=== PATIENT | male | born 1965 | race Caucasian/White ===

== ENCOUNTER → 2021-08-15 08:45 | Outpatient (CLI) | payer OTHER, SELFPAY ==
[2021-08-15 09:12] LABS: COVID19 -Nasal RAPID Negative (Negative)
== END ==
PROVIDERS: PCP Student in an Organized Health Care Education/Training Program; Visit Provider Family Medicine Sleep Medicine
DX: Z20.822 Contact with and (suspected) exposure to COVID-19 (principal)
CPT/HCPCS: 87635

== ENCOUNTER 2021-08-15 11:26 | Day surgery (SDC) | payer OTHER, SELFPAY ==
--- NOTE | 2021-08-15 | PATH_ITS ---
[facility] Accession Number: [id number] . 01 Material submitted: . colon - TRANSVERSE COLON POLYP . 02 Diagnosis: Transverse Colon Polyp, Biopsy: Inflammatory polyp. MRV 08/18/2021 1155 Local . 02 Electronically signed: . Endy Barnett MD, PhD, Pathologist NPI- [id number] . 01 Gross description: . TRANSVERSE COLON POLYP: Received in formalin is 1 fragment(s) of gibbons, soft tissue measuring 0.4 x 0.3 x 0.3 cm submitted entirely in 1 cassette(s) /CPE 08/17/2021 1020 Local . 02 Pathologist provided ICD-10: K51.40 . 02 CPT . 067858 Specimen Comment: A courtesy copy of this report has been sent to [phone] Performed at: 01 [facility] [address] [id number] MD Shaan Garza MD Phone: [phone] Performed at: 02 [facility] [address] [place], [place] [id number] MD Marbella Sands MD Phone: [phone]
[2021-08-15 11:46] VITALS: BMI 35.2
[2021-08-15 11:51] VITALS: BP 138/82; PULSE 63; RESP 16; TEMP 36.8; O2SAT 98
[2021-08-15] MEDS: SODIUM CHLORIDE 0.9% 1,000 ML 84 ML IV (11:53)
--- NOTE | 2021-08-15 12:51 | PM.HP.1 ---
History of Present Illness History of Present Illness Date Patient Seen: 08/15/21 Time Patient Seen: 12:51 Chief complaint: SDC Narrative: Indicated for colon cancer screening. Tam seems to recall unknown histology polyps as of the last exam. I have not seen this procedure note nor pathology as of this writing. Patient History Medical History Heartburn Hypercholesteremia Family & Social History Social History: household members spouse Tobacco & Substance use: Smoking Status Former smoker alcohol intake never Substance Use Type does not use Meds Home Medications and Allergies Home Medications Medication Instructions Recorded Confirmed Type celecoxib 200 mg capsule 200 mg PO DAILY 08/15/21 08/15/21 History fluticasone propionate 50 50 mcg INTRANASAL DAILY 08/15/21 08/15/21 History mcg/actuation nasal spray,suspension hydrochlorothiazide 25 mg tablet 25 mg PO DAILY 08/15/21 08/15/21 History loratadine 10 mg tablet 10 mg PO DAILY 08/15/21 08/15/21 History montelukast 10 mg tablet 10 mg PO DAILY 08/15/21 08/15/21 History Allergies Allergy/AdvReac Type Severity Reaction Status Date / Time ceftriaxone [From Rocephin] Allergy Severe Anaphylaxis Verified 08/15/21 11:41 Review of Systems Review of Systems ROS: Yes All systems reviewed with the patient and are negative except as otherwise documented Exam Vital Signs (past 8 hours): - 08/15/21 11:51 Temperature 98.2 F Pulse Rate 63 Respiratory Rate 16 Blood Pressure 138/82 Pulse Oximetry 98 Oxygen Delivery Method Room Air Const General: cooperative and comfortable Orientation: alert HENOR Head: normocephalic Ears: external ears normal Nose: external nose normal Face and sinus: normal facial exam Mouth: oral mucosae normal Eyes General: appearance normal, both eyes and all related structures Neck Neck: normal visual inspection Chest Chest: normal inspection of the chest Resp Effort & Inspection: normal respiratory effort Cardio Rate: regular rate GI Inspection: normal to inspection Skin General: no rashes or lesions noted and No jaundice Neuro General: patient alert and moves all extremities Cognition: normal cognition Speech: speech normal Extrem General: no pedal edema Psych Appearance: grossly normal Assessment & Plan Assessment & Plan narrative: 56-year-old male who reports an unknown histology colon polyp from 5 years ago or so. Colonoscopy is planned for today. Time Spent With Patient Critical Care time: I spent a total of [] minutes of critical care time on this patient's care today; this time is exclusive of procedural time.
--- NOTE | 2021-08-15 12:53 | PM.PREOP ---
Pre-operative Note COVID-19 COVID-19 status: Negative Result date/Date tested (Pos, Neg/Pending): 08/15/21 Criteria for continued procedure: Possibility delay results in more complex future surgery or treatment Interval Note History & Physical reviewed/Exam performed by Physician: Yes Changes to H&P: No ASA Class (for procedural sedation): II
--- NOTE | 2021-08-15 13:37 | P.OP.COLON_ITS ---
Operative Date/Time/Diagnoses Date of procedure: 08/15/21 Time of procedure: 13:37 Pre-op diagnosis: Personal history of colon polyps Post-op diagnosis: same Procedure & Clinicians Study performed: Colonoscopy with cold snare polypectomy Same procedure as scheduled: Yes Indications: Personal history of colon polyps Surgeon: Dani Queen Procedure Notes SCOAP/Timeout: Done Procedure in detail: After the risks and benefits were explained, written and verbal informed consent was obtained. The patient was brought into the procedure room and placed into the left lateral decubitus position. Please see nurse mobile battery technician notes for sedation details. Digital rectal examination was accomplished. The scope was introduced into the patient and advanced under direct visualization to the cecum as identified by the appendiceal orifice and ileocecal valve. The scope was slowly withdrawn to carefully examine the mucosa for any defects or lesions. Comprehensive imaging was accomplished throughout the rectum including the dentate line. The colon was decompressed, the scope was then removed from the patient who tolerated the procedure well. Bowel prep adequate Adult colonoscope Scope withdrawal time: 10 minutes Sedation minutes: 19 Complications: none Impression: There was some mild diverticulosis in the left colon. Patient had grade 2 internal nonbleeding nonthrombosed hemorrhoids. There was a small 5 mm polyp in the distal transverse removed with cold snare. No additional mucosal pathology was appreciated throughout. Endoscopic diagnosis 1. Colon polyp 2. Diverticulosis 3. Grade 2 hemorrhoids Post-procedure Plan for aftercare: 1. Await histopathology 2. Repeat colonoscopy 7 years. Disposition: PACU
[2021-08-15 13:39] VITALS: BP 124/84; PULSE 60; RESP 20; TEMP 36.3; O2SAT 97
[2021-08-15 13:45] VITALS: BP 105/68; PULSE 65; RESP 11; O2SAT 96
--- NOTE | 2021-08-15 13:51 | SUR.PHASEI ---
Sitting up, alert, anxious to go home. Drinking juice, Hand-off to [facility].
[2021-08-15 13:59] VITALS: BP 110/72; PULSE 68; RESP 13; TEMP 36.4; O2SAT 98
[2021-08-15 14:05] VITALS: BP 117/74; PULSE 58; RESP 16; O2SAT 97
== END 2021-08-15 14:17 | disposition home or self-care (01) ==
PROVIDERS: PCP Student in an Organized Health Care Education/Training Program; Referring Provider Internal Medicine Gastroenterology; Visit Provider Internal Medicine Gastroenterology
PROC: 0DJD8ZZ Inspection of Lower Intestinal Tract, Via Natural or Artificial Opening Endoscopic (ICD-10-PCS; CPT 45378; principal; 2021-08-15 12:30)
DX: Z12.11 Encounter for screening for malignant neoplasm of colon (principal); Z86.010 Personal history of colon polyps; Z20.822 Contact with and (suspected) exposure to COVID-19; K57.30 Diverticulosis of large intestine without perforation or abscess without bleeding; K64.1 Second degree hemorrhoids; K51.40 Inflammatory polyps of colon without complications
CPT/HCPCS: 45385; 87635; C9803; J2704

== ENCOUNTER 2022-03-01 21:13 | Emergency (ER) | payer OTHER, SELFPAY ==
[2022-03-01 21:20] VITALS: BP 146/84; PULSE 76; RESP 18; TEMP 36.1; O2SAT 98; BMI 33.3
--- NOTE | 2022-03-02 01:56 | ED_ITS ---
HPI - Head Injury General Chief complaint: Head Injury Stated complaint: head injury Time Seen by Provider: 03/02/22 01:30 Source: patient Mode of arrival: Ambulatory History of Present Illness HPI Narrative: 57-year-old male nonsmoker with history of hypertension presents with his with a chief complaint of a head injury earlier today. He was at a trampoline park up in [place] and jumped up in fell back striking his head on the ground. He reports to have had a loss of consciousness about 1 minute and had some brief confusion in the immediate aftermath but no vomiting, no seizure and has been in is neurologic baseline for many hours since. He does not take any blood thinners and denies use of alcohol or street drugs. He denies any numbness, tingling or weakness of his extremities. He has no other injuries such as neck or back pain. Does endorse a mild headache and feels a bit sleepy but is otherwise alert and oriented and acting at baseline. Related Data Home Medications Medication Instructions Recorded Confirmed celecoxib 200 mg capsule 200 mg PO DAILY 08/15/21 08/15/21 fluticasone propionate 50 50 mcg intranasal DAILY 08/15/21 08/15/21 mcg/actuation nasal spray,suspension hydrochlorothiazide 25 mg tablet 25 mg PO DAILY 08/15/21 08/15/21 loratadine 10 mg tablet 10 mg PO DAILY 08/15/21 08/15/21 montelukast 10 mg tablet 10 mg PO DAILY 08/15/21 08/15/21 Allergies Allergy/AdvReac Type Severity Reaction Status Date / Time ceftriaxone [From Rocephin] Allergy Severe Anaphylaxis Verified 08/15/21 11:41 Review of Systems Review of Systems Narrative: GENERAL: Denies chills, fatigue, malaise, fever, sweats. HEENT: Denies sinus pain, ear pain, sore throat, difficulty swallowing, dizziness. RESPIRATORY: Denies dyspnea, cough, wheezing, hemoptysis, sputum. CARDIOVASCULAR: Denies chest pain, palpitations, orthopnea, edema, GASTROINTESTINAL: Denies nausea, vomiting, abdominal pain, diarrhea, constipation, melena. : Denies dysuria, frequency, incontinence, hematuria, urinary retention. MUSCULOSKELETAL: denies weakness, joint pain, or bony pain SKIN: Denies rash, skin lesions, or other NEUROLOGIC: See HPI PSYCHIATRIC: No concerning psychosocial issues. 12 point review of systems is negative except for those stated above Patient History Medical History Heartburn Hypercholesteremia Social History household members: spouse Smoking Status: Former smoker alcohol intake: never Smoking Status: Former smoker Substance Use Type: does not use Exam Narrative Exam Narrative: GENERAL: [57] year old patient appears stated age. Well-developed patient, in mild distress. GCS 15 HEAD: Atraumatic. Normocephalic. EYES: Pupils equal round and reactive. Extraocular motions intact. No scleral icterus. No injection or drainage. ENT: Nose without bleeding, purulent drainage. Throat without erythema, tonsillar hypertrophy or exudate. Airway patent. NECK: Trachea midline. Non tender CARDIOVASCULAR: Regular rate and rhythm without murmurs, gallops, or rubs. RESPIRATORY: Clear to auscultation. Breath sounds equal bilaterally. No wheezes, rales, or rhonchi. GASTROINTESTINAL: Abdomen soft, non-tender, nondistended. EXTREMITIES: No edema or joint tenderness. BACK: Nontender without deformity or crepitance. No flank tenderness. NEURO: AOx3. SKIN: No rash or erythema of visible areas NIH Stroke Scale 1a. LOC: Patient is alert and keenly responsive (0) 1b. LOC Questions: Patient answers both LOC questions accurately (0) 1c. LOC Commands: Patient performs both tasks correctly (0) 2. Best Gaze: Normal (0) 3. Visual: No visual loss (0) 4. Facial palsy: Normal symmetrical movements (0) 5. Motor arm: No drift (0) 6. Motor leg: No drift (0) 7. Limb ataxia: Absent (0) 8. Sensory: Normal (0) 9. Best language: No aphasia; normal (0) 10. Dysarthria: Normal (0) 11. Extinction and inattention: No abnormality (0) NIHSS: 0 Initial Vital Signs Initial Vital Signs: Vital Signs Temperature 97 F L 03/01/22 21:20 Pulse Rate 76 03/01/22 21:20 Respiratory Rate 18 03/01/22 21:20 Blood Pressure 146/84 H 03/01/22 21:20 Pulse Oximetry 98 03/01/22 21:20 Oxygen Delivery Method 03/01/22 21:[address] Head Rule Age <16 years old: No Patient on blood thinners: No Seizure after injury: No Exclusion: Patient NOT Excluded, Proceed to next steps GCS < 15 at 2 hr post trauma: No Suspected open or depressed skull fracture: No Any sign of basilar skull fracture (hemotympanum, raccoon eyes, Arias's sign, CSF nicole-/rhinorrhea): No Two or more episodes of vomiting: No Age greater or equal to 65 years: No Retrograde amnesia to the event greater or equal to 30 min: No Dangerous Mechanism (pedestrian vs. mv, occupant ejected from mv, fall from >3 ft or > 5 stairs): No Recommendation: CT unnecessary Course Vital Signs Vital signs: Vital Signs - 8 hr 03/01/22 21:20 03/02/22 02:17 Temperature 97 F L 97.1 F L Pulse Rate 76 61 Respiratory Rate 18 16 Blood Pressure 146/84 H 149/80 H Pulse Oximetry 98 95 Oxygen Delivery Method Room Air Room Air Discharge Plan Departure Patient Disposition: Home Clinical Impression: Concussion with loss of consciousness Instructions: Concussion Activity Restrictions/Additional Instructions: *You have been diagnosed with [concussion with brief loss of consciousness] *What to do: *Please continue to take your regular medications as directed. * You have a slight concussion and will likely have a mild headache and some nausea for a few days. Avoiding highly stimulating activities and even TV or computers may be helpful in minimizing your symptoms. Avoid activities that will put you at risk for another head injury for at least a week. You can take tylenol or motrin for headache Return for worsening or persistent symptoms *Return to Emergency Department if you should have any new, worsening or concerning symptoms Prescriptions: No Action celecoxib 200 mg capsule 200 mg PO DAILY montelukast 10 mg tablet 10 mg PO DAILY hydrochlorothiazide 25 mg tablet 25 mg PO DAILY fluticasone propionate 50 mcg/actuation spray,suspension 50 mcg INTRANASAL DAILY loratadine 10 mg tablet 10 mg PO DAILY Referrals: Vincent Cronin DO [Primary Care Provider] -
[2022-03-02 02:17] VITALS: BP 149/80; PULSE 61; RESP 16; TEMP 36.2; O2SAT 95
== END 2022-03-02 02:20 | disposition home or self-care (01) ==
PROVIDERS: Emergency Provider Emergency Medicine; PCP Student in an Organized Health Care Education/Training Program
DX: S06.0X1A Concussion with loss of consciousness of 30 minutes or less, initial encounter (principal); W18.00XA Striking against unspecified object with subsequent fall, initial encounter
CPT/HCPCS: 99281